=== PATIENT | male | born 1930 | race Caucasian/White ===

== ENCOUNTER 2017-03-25 16:39 | Emergency (ER) | payer BC, MEDICARE ==
--- NOTE | 2017-03-25 18:32 | ER Document Report ---
ED Medical Screen (RME) - General Chief Complaint: Urinary Retention Stated Complaint: URINATION PROBLEM Time Seen by Provider: 03/25/17 18:31 Mode of Arrival: Ambulatory Information source: Patient, Relative - Daughter Notes: Patient presents emergency department with complaints of urinary retention. Reports urinary frequency yesterday. Reports he is just dribbling today. History of BPH, renal cell carcinoma. Denies fever vomiting diarrhea. TRAVEL OUTSIDE OF THE [place] IN LAST 30 DAYS: No - Related Data Allergies/Adverse Reactions: torsemide Allergy (Verified 03/25/17 16:50) trazodone Allergy (Verified 03/25/17 16:50) Past Medical History - Social History Chew tobacco use (# tins/day): No Frequency of alcohol use: None Drug Abuse: None - Past Medical History Cardiac Medical History: Reports: Hx Hypertension Renal/ Medical History: Denies: Hx Peritoneal Dialysis Musculoskeltal Medical History: Reports Hx Arthritis Psychiatric Medical History: Reports: Hx Depression Physical Exam - Vital signs Vitals: Temp Pulse Resp BP Pulse Ox 98.2 F 90 18 172/91 H 93 03/25/17 16:50 03/25/17 16:50 03/25/17 16:50 03/25/17 16:50 03/25/17 16:50 Course - Vital Signs Vital signs: Temp Pulse Resp BP Pulse Ox 98.2 F 90 18 172/91 H 93 03/25/17 16:50 03/25/17 16:50 03/25/17 16:50 03/25/17 16:50 03/25/17 16:50
[2017-03-25 19:50] LABS: APPEARANCE,URINE SLIGHTLY-CLOUDY; BILIRUBIN,URINE NEGATIVE (NEGATIVE); GLUCOSE, URINE NEGATIVE (NEGATIVE); KETONES,URINE NEGATIVE (NEGATIVE); LEUKOCYTE ESTERASE,URINE SMALL (NEGATIVE); NITRITE,URINE NEGATIVE (NEGATIVE); PROTEIN,URINE >=500 mg/dL (NEGATIVE); URINE SPECIFIC GRAVITY 1.009; UROBILINOGEN,URINE NEGATIVE mg/dL (<2.0)
--- NOTE | 2017-03-25 19:51 | ER Document Report ---
ED GI/ - General Chief Complaint: Urinary Retention Stated Complaint: URINATION PROBLEM Time Seen by Provider: 03/25/17 18:31 Mode of Arrival: Ambulatory Notes: Patient is an 87-year-old male, past medical history stage IV renal cell carcinoma, BPH, presents with 1 day of acute urinary retention. He said that he can only dribble and feels like his bladder is full. 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 Denies fevers, flank pain, nausea, vomiting, testicular pain, chest pain or shortness of breath. TRAVEL OUTSIDE OF THE [place] IN LAST 30 DAYS: No - Related Data Allergies/Adverse Reactions: torsemide Allergy (Verified 03/25/17 16:50) trazodone Allergy (Verified 03/25/17 16:50) Past Medical History - General Information source: Patient, Relative - Daughter - Social History Smoking Status: Never Smoker Chew tobacco use (# tins/day): No Frequency of alcohol use: None Drug Abuse: None Family History: Reviewed & Not Pertinent Patient has suicidal ideation: No Patient has homicidal ideation: No - Past Medical History Cardiac Medical History: Reports: Hx Hypertension Renal/ Medical History: Denies: Hx Peritoneal Dialysis Musculoskeltal Medical History: Reports Hx Arthritis Psychiatric Medical History: Reports: Hx Depression Review of Systems - Review of Systems Notes: REVIEW OF SYSTEMS: CONSTITUTIONAL: -fevers, -chills EENT: -eye pain, -difficulty swallowing, -nasal congestion CARDIOVASCULAR:-chest pain, -syncope. RESPIRATORY: -cough, -SOB GASTROINTESTINAL: -abdominal pain, - nausea, -vomiting, -diarrhea GENITOURINARY: +urinary retention, -dysuria, -hematuria MUSCULOSKELETAL: -back pain, -neck pain SKIN: -rash or skin lesions. HEMATOLOGIC: -easy bruising or bleeding. LYMPHATIC: -swollen, enlarged glands. NEUROLOGICAL: -altered mental status or loss of consciousness, -headache, - neurologic symptoms PSYCHIATRIC: -anxiety, -depression. ALL OTHER SYSTEMS REVIEWED AND NEGATIVE. Physical Exam - Vital signs Vitals: Temp Pulse Resp BP Pulse Ox 98.2 F 90 18 172/91 H 93 03/25/17 16:50 03/25/17 16:50 03/25/17 16:50 03/25/17 16:50 03/25/17 16:50 - Notes Notes: PHYSICAL EXAMINATION: GENERAL: Well-appearing, well-nourished and in no acute distress. HEAD: Atraumatic, normocephalic. EYES: Pupils equal round and reactive to light, extraocular movements intact, sclera anicteric, conjunctiva are normal. ENT: nares patent, oropharynx clear without exudates. Moist mucous membranes. NECK: Normal range of motion, supple without lymphadenopathy LUNGS: Breath sounds clear to auscultation bilaterally and equal. No wheezes rales or rhonchi. HEART: Regular rate and rhythm without murmurs ABDOMEN: Soft, mild suprapubic tenderness, normoactive bowel sounds. No guarding, no rebound. No masses appreciated. EXTREMITIES: Normal range of motion, no pitting or edema. No cyanosis. NEUROLOGICAL: Cranial nerves grossly intact. Normal speech, normal gait. Normal sensory and motor exams. PSYCH: Normal mood, normal affect. SKIN: Warm, Dry, normal turgor, no rashes or lesions noted. Course - Re-evaluation Re-evalutation: After Chaparro was placed, patient drained yellow urine. He feels much better. Will send home with leg bag follow-up at his urologist. - Vital Signs Vital signs: Temp Pulse Resp BP Pulse Ox 98.2 F 67 16 109/71 98 03/25/17 16:50 03/25/17 20:12 03/25/17 20:12 03/25/17 20:12 03/25/17 20:12 - Laboratory Laboratory results interpreted by me: 03/25/17 18:50 Urine Protein >=500 H Ur Leukocyte Esterase SMALL H Discharge - Discharge Clinical Impression: Acute urinary retention Condition: Good Disposition: HOME, SELF-CARE Additional Instructions: Keep the Chaparro in place and follow-up with the urologist tomorrow. Urinary Retention Urinary retention is inability to empty the bladder. It can result from a urine infection, or from mechanical problems such as an enlarged prostate gland or swelling of the urethra. Drugs or alcohol can also lead to urine retention. The condition is usually treated by passage of a catheter. If the physician thinks the problem will continue, the catheter may be left in place for a few days. Sometimes drugs are used to stimulate the bladder if the physician feels that inadequate bladder contraction is the cause. If the condition leading to the retention is a chronic one, such as an enlarged prostate, you will be referred to a specialist for further care. Call the physician or return if you develop fever, flank or back pain, pain on urination, or recurrent difficulty passing the urine. Referrals: RAINE PEREA MD [ACTIVE STAFF] - Follow up as needed
[2017-03-25 20:15] VITALS: BP 109/71
== END 2017-03-25 20:14 | disposition home or self-care (01) ==
LOC: ER 16:39
DX: R33.9 Retention of urine, unspecified (principal); I10 Essential (primary) hypertension
CPT/HCPCS: 51702; 81001; 87086; 99283